=== PATIENT | female | born 1990 ===

== ENCOUNTER 2018-01-07 16:47 | Emergency (ER) | payer SELFPAY ==
[2018-01-07 18:10] VITALS: BP 106/73
[2018-01-07 19:06] LABS: Bilirubin,Urine NEG (Negative); Blood,Urine LG (Negative); Color,Urine Yellow (Yellow); Mucus,Urine 1+ /HPF; Protein,Urine <15 mg/dL mg/dL (Negative)
[2018-01-07 19:07] LABS: RBC,Urine > 182.0 /HPF (0.0-6.0)
[2018-01-07 19:08] LABS: HCG Qualitative,Urine Negative (Negative)
--- NOTE | 2018-01-07 22:47 | Cat Scan Report ---
FINAL REPORT PROCEDURE: CT ABDOMEN PELVIS WO CON TECHNIQUE: Computerized axial tomography of the abdomen and pelvis was performed without intravenous contrast. This study is performed without intravascular contrast material and its sensitivity for abdominal and pelvic pathology, including neoplasms, inflammation, abscess, free fluid, thrombosis, arterial dissection and infarction, is reduced compared with a contrast enhanced study. HISTORY: left flank pain with hematuria COMPARISON: No prior studies are available for comparison. FINDINGS: Liver, spleen, a 3 millimeter nonobstructive calculus is noted in the mid pole left kidney. There is no obstructive uropathy. Urinary bladder is minimally filled with normal outlines. Aorta is of normal caliber. There is no free fluid or free air. Gallbladder is unremarkable. Small bowel loops are within normal limits. Moderate degree residual stool is noted. Appendix is normal. 3.7 x 3.9 centimeter cystic lesion is noted in the left adnexal region. Vertebral alignment is normal. IMPRESSION: 3 millimeter nonobstructive calculus is noted in the left kidney A left adnexal cystic lesion most likely represents left ovarian cyst. Ultrasound evaluation may be recommended. Otherwise no acute intra-abdominal or pelvic pathology as visualized on this noncontrast study..
--- NOTE | 2018-01-07 23:20 | Emergency Department Report ---
ED Abdominal Pain HPI - General Chief Complaint: Abdominal Pain Stated Complaint: PAIN ALLOVER Time Seen by Provider: 01/07/18 21:11 Source: patient Mode of arrival: Ambulatory Limitations: No Limitations - History of Present Illness Initial Comments: 27-year-old -[place] female presents to the emergency room for complaint of left flank pain and constipation. Patient states that she has some blood when she wiped. Patient denies any fever or chills but admits to nausea. She reports her stools are intermittent and she thinks she may have had one yesterday. She says the left side is having cramping. Past medical history none current medications none has no known drug allergies. -: days(s) (1) Location: L flank Radiation: suprapubic Severity: severe Severity scale (0 -10): 8 Quality: cramping Consistency: intermittent Improves With: rest Worsens With: movement Associated Symptoms: nausea, hematuria - Related Data LMP Date: 12/12/17 Previous Rx's Medication Instructions Recorded Last Taken Type Ketorolac [Toradol] 10 mg PO Q6H PRN #20 tablet 01/07/18 Unknown Rx Allergies Allergy/AdvReac Type Severity Reaction Status Date / Time No Known Allergies Allergy Unverified 01/07/18 18:10 ED Review of Systems ROS: Stated complaint: PAIN ALLOVER Other details as noted in HPI Gastrointestinal: abdominal pain (left flank pain), nausea Genitourinary: hematuria ED Past Medical Hx - Past Medical History Previous Medical History?: No - Surgical History Additional Surgical History: , D&C - Social History Smoking Status: Current Every Day Smoker Substance Use Type: Alcohol - Medications Home Medications: Home Medications Medication Instructions Recorded Confirmed Last Taken Type Ketorolac [Toradol] 10 mg PO Q6H PRN #20 tablet 01/07/18 Unknown Rx ED Physical Exam - General Limitations: No Limitations General appearance: alert, in no apparent distress - Head Head exam: Present: atraumatic, normocephalic - Eye Eye exam: Present: EOMI - ENT ENT exam: Present: mucous membranes moist - Respiratory Respiratory exam: Present: normal lung sounds bilaterally. Absent: respiratory distress - Cardiovascular Cardiovascular Exam: Present: regular rate, normal rhythm. Absent: systolic murmur, diastolic murmur, rubs, gallop - GI/Abdominal GI/Abdominal exam: Present: soft. Absent: distended, tenderness, guarding - Extremities Exam Extremities exam: Present: normal inspection, full ROM - Back Exam Back exam: Present: CVA tenderness (L) - Neurological Exam Neurological exam: Present: alert, oriented X3 - Psychiatric Psychiatric exam: Present: normal affect, normal mood - Skin Skin exam: Present: warm, dry, intact, normal color. Absent: rash ED Course Vital Signs 01/07/18 18:04 Temperature 99.3 F Pulse Rate 71 Respiratory 18 Rate Blood Pressure 106/73 O2 Sat by Pulse 100 Oximetry ED Medical Decision Making - Radiology Data Radiology results: report reviewed, image reviewed FINAL REPORT PROCEDURE: CT ABDOMEN PELVIS WO CON TECHNIQUE: Computerized axial tomography of the abdomen and pelvis was performed without intravenous contrast. This study is performed without intravascular contrast material and its sensitivity for abdominal and pelvic pathology, including neoplasms, inflammation, abscess, free fluid, thrombosis, arterial dissection and infarction, is reduced compared with a contrast enhanced study. HISTORY: left flank pain with hematuria COMPARISON: No prior studies are available for comparison. FINDINGS: Liver, spleen, a 3 millimeter nonobstructive calculus is noted in the mid pole left kidney. There is no obstructive uropathy. Urinary bladder is minimally filled with normal outlines. Aorta is of normal caliber. There is no free fluid or free air. Gallbladder is unremarkable. Small bowel loops are within normal limits. Moderate degree residual stool is noted. Appendix is normal. 3.7 x 3.9 centimeter cystic lesion is noted in the left adnexal region. Vertebral alignment is normal. IMPRESSION: 3 millimeter nonobstructive calculus is noted in the left kidney A left adnexal cystic lesion most likely represents left ovarian cyst. Ultrasound evaluation may be recommended. Otherwise no acute intra-abdominal or pelvic pathology as visualized on this noncontrast study.. Transcribed By: [facility] Dictated By: BECCA DENNISON Electronically Authenticated By: BECCA DENNISON Signed Date/Time: 01/07/182238 DD/ 38 TD/TT: 01/07/182238 - Medical Decision Making Patient has been evaluated by this provider in fast track. Patient had a urinalysis which shows greater than [address] without contrast of abdomen and pelvis to rule out renal stones since patient has hematuria and left flank pain. Discussed with patient that she has a left kidney stone dose at 3 mm nonobstructing as well as a left ovarian cyst. Discharged patient on Toradol 10 mg every 4-6 hours as needed. Referral to [facility] and urology. Critical care attestation.: If time is entered above; I have spent that time in minutes in the direct care of this critically ill patient, excluding procedure time. ED Disposition Clinical Impression: Kidney calculi Ovarian cyst Qualifiers: Laterality: left Qualified Code(s): N83.202 - Unspecified ovarian cyst, left side Disposition: TO HOME OR SELFCARE Is pt being admited?: No Does the pt Need Aspirin: No Condition: Stable Instructions: Abdominal Pain (ED), Kidney Stones (ED) Additional Instructions: Please is take pain medication as prescribed. He'll also have an ovarian cyst on the left side as well as. I recommend to follow up with [facility]. As well as a kidney stone on the left side I recommended for you to follow up with urology. Prescriptions: Ketorolac [Toradol] 10 mg PO Q6H PRN #20 tablet PRN Reason: Pain Referrals: [facility] [Primary Care Provider] - 3-5 Days [facility] [Provider Group] - 3-5 Days [facility] [Provider Group] - 3-5 Days [facility] [Provider Group] - 3-5 Days [facility] [Provider Group] - 3-5 Days MICAELA BEVERLY MD [Staff Physician] - 3-5 Days Forms: Work/School Release Form(ED)
[2018-01-07] MEDS ORDERED: TORADOL ONE (23:29)
[2018-01-07] MEDS ORDERED: TORADOL IM ONE (23:36)
== END 2018-01-07 23:38 | disposition home or self-care (01) ==
LOC: ED 16:47
DX: N83.202 Unspecified ovarian cyst, left side (principal); N20.0 Calculus of kidney; F17.200 Nicotine dependence, unspecified, uncomplicated; Z79.899 Other long term (current) drug therapy
CPT/HCPCS: 74176; 81001; 81025; 96372; 99284; J1885